=== PATIENT | male | born 1980 | race African-American/Black ===

== ENCOUNTER 2022-09-17 08:56 | Inpatient (IN) | payer MEDICAID, OTHER ==
[~2022-09-17] VITALS: Ht 182.9 cm; Wt 93.9 kg
[2022-09-17 09:58] LABS: BASOPHILS % 0.6 % (0.0-2.0); EOSINOPHILS % 1.1 % (0.0-5.0); HEMATOCRIT. 42.2 % (42.0-52.0); LYMPHOCYTES % 24.4 % (20.0-50.0); MEAN CORPUSCULAR HEMOGLOBIN 30.3 pg (28.0-32.0); MEAN CORPUSCULAR VOLUME 91.7 fL (80.0-94.0); MEAN PLATELET VOLUME 9.8 fl (7.4-10.4); MONOCYTES % 7.6 % (2.0-8.0); NEUTROPHILS % 66.3 % (40.0-76.0); PLATELET 136 x1000/uL (130-400); RED CELL DISTRIBUTION WIDTH 14.7 % (11.6-14.6)
[2022-09-17 10:06] LABS: CHLORIDE 108 mEq/L (98-107)
[2022-09-17] MEDS ORDERED: MORPHINE SULFATE 4 MG/ML CPJ (NOT FOR IM USE) IV ONE (10:30)
[2022-09-17] MEDS ORDERED: ASPIRIN 325MG EC TABLET PO ONE (10:30)
[2022-09-17] MEDS: LOSARTAN POTASSIUM 50 MG TABLET PO SCH (12:15)
[2022-09-17] MEDS ORDERED: ONDANSETRON HCL 4MG/2ML INJ IV PRN (12:15)
[2022-09-17] MEDS ORDERED: ACETAMINOPHEN 325MG TABLET PO PRN (12:15)
[2022-09-17] MEDS: PANTOPRAZOLE 40MG DR TABLET PO SCH ×2 (15:15→21:43)
[2022-09-17] MEDS ORDERED: REGADENOSON 0.4 MG/5 ML IV NR (15:30)
[2022-09-17 16:16] VITALS: BP 145/82
[2022-09-17] MEDS ORDERED: ENOXAPARIN 40MG/0.4ML SYR SUBCUT SCH (18:00)
[2022-09-17 18:58] LABS: CLARITY URINE CLEAR (CLEAR); COLOR URINE YELLOW (YELLOW); KETONES URINE NEGATIVE (NEGATIVE); LEUKOCYTE ESTERASE URINE NEGATIVE (NEGATIVE); NITRITE URINE NEGATIVE (NEGATIVE); OCCULT BLOOD URINE NEGATIVE (NEGATIVE); PROTEIN URINE TRACE (NEGATIVE); SPECIFIC GRAVITY URINE 1.028 (1.005-1.030)
[2022-09-17 19:09] LABS: *AMPHETAMINES SCREEN URINE NEGATIVE (NEGATIVE); *BARBITURATES SCREEN URINE NEGATIVE (NEGATIVE); *BENZODIAZEPINES SCREEN URINE NEGATIVE (NEGATIVE); *COCAINE SCREEN URINE NEGATIVE (NEGATIVE); CANNABINOID URINE SCREEN PRESUMTIVE POSITIVE (NEGATIVE); METHADONE URINE SCREEN NEGATIVE (NEGATIVE); OPIATES URINE SCREEN PRESUMTIVE POSITIVE (NEGATIVE); PHENCYCLIDINE URINE SCREEN NEGATIVE (NEGATIVE)
[2022-09-17 20:00] VITALS: BP 139/60
[2022-09-17] MEDS ORDERED: ATORVASTATIN CALCIUM 40MG TABLET PO SCH (21:00)
[2022-09-17] MEDS: CARVEDILOL 3.125 MG TABLET PO SCH (21:43)
[2022-09-18] VITALS: BP 134/64
[2022-09-18 04:00] VITALS: BP 154/77
[2022-09-18 05:30] LABS: BASOPHILS % 0.4 % (0.0-2.0); EOSINOPHILS % 2.2 % (0.0-5.0); HEMATOCRIT. 40.4 % (42.0-52.0); HEMOGLOBIN. 13.6 g/dL (14.0-18.0); LYMPHOCYTES % 39.6 % (20.0-50.0); MEAN CORPUSCULAR HEMOGLOBIN 30.7 pg (28.0-32.0); MEAN CORPUSCULAR VOLUME 91.5 fL (80.0-94.0); MEAN PLATELET VOLUME 10.3 fl (7.4-10.4); MONOCYTES % 6.8 % (2.0-8.0); PLATELET 135 x1000/uL (130-400); RED BLOOD CELL COUNT 4.42 mill/uL (4.7-6.1); RED CELL DISTRIBUTION WIDTH 14.9 % (11.6-14.6)
[2022-09-18 05:41] LABS: CHLORIDE 107 mEq/L (98-107)
[2022-09-18] MEDS: PANTOPRAZOLE 40MG DR TABLET PO SCH (06:17)
[2022-09-18 08:00] VITALS: BP 141/63
[2022-09-18] MEDS: CARVEDILOL 3.125 MG TABLET PO SCH (08:22)
[2022-09-18] MEDS: LOSARTAN POTASSIUM 50 MG TABLET PO SCH (08:22)
[2022-09-18] MEDS ORDERED: ASPIRIN 81MG TABLET PO SCH (09:00)
[2022-09-18] MEDS ORDERED: REGADENOSON 0.4 MG/5 ML IV ONE (10:24)
[2022-09-18 12:00] VITALS: BP 133/74
[2022-09-18] MEDS ORDERED: LOSA50TA3 PO ×3 (15:22→16:13)
[2022-09-18] MEDS ORDERED: LIP40 PO ×3 (15:22→16:13)
[2022-09-18 15:28] VITALS: BP 133/70
[2022-09-18 16:00] VITALS: BP 135/80
== END 2022-09-18 17:15 | disposition home or self-care (01) | DRG 243 ==
LOC: ER 08:56 → 8WST 11:38 → EDBEDREQTM 11:41 → EDBEDREQ 11:41
PROVIDERS: ADMIT Internal Medicine; ATTEND Internal Medicine
DX: K21.9 Gastro-esophageal reflux disease without esophagitis (principal); E78.5 Hyperlipidemia, unspecified; M94.0 Chondrocostal junction syndrome [Tietze]; F17.210 Nicotine dependence, cigarettes, uncomplicated; I10 Essential (primary) hypertension; Z82.49 Family history of ischemic heart disease and other diseases of the circulatory system
CPT/HCPCS: 36415; 71045; 78452; 80048; 80053; 80061; 80305; 81003; 83880; 84484; 85025; 93005; 93017; 93306; 99285; 99406; A9500; J1650; J2270; J2785

== ENCOUNTER 2025-07-21 13:12 | Emergency (ER) | payer MEDICAID ==
[~2025-07-21] VITALS: Ht 190.5 cm; Wt 100.0 kg
[~2025-07-21 13:12] MED LIST: LIP40 PO; LOSA-413 PO
[2025-07-21 13:14] VITALS: TEMP 98.1; O2SAT 97
[2025-07-21] MEDS: HALOPERIDOL LACTATE 5MG/ML VIAL IM ONE (13:48)
[2025-07-21] MEDS: SODIUM CHLORIDE 0.9% 1,000 ML IV ONE (13:48)
[2025-07-21 13:51] VITALS: TEMP 36.7
[2025-07-21 14:13] LABS: BASOPHILS % 0.3 % (0.0-2.0); EOSINOPHILS % 0.3 % (0.0-5.0); HEMATOCRIT. 40.2 % (42.0-52.0); HEMOGLOBIN. 12.9 g/dL (14.0-18.0); LYMPHOCYTES % 7.6 % (20.0-50.0); MEAN PLATELET VOLUME 9.7 fl (7.4-10.4); MONOCYTES % 5.5 % (2.0-8.0); NEUTROPHILS % 86.3 % (40.0-76.0); PLATELET 163 x1000/uL (130-400); RED BLOOD CELL COUNT 4.36 mill/uL (4.7-6.1); RED CELL DISTRIBUTION WIDTH 14.4 % (11.6-14.6)
[2025-07-21 14:15] LABS: INR 1.1
[2025-07-21 14:32] LABS: CREATININE 1.1 mg/dL (0.6-1.3)
[2025-07-21 14:33] LABS: UREA NITROGEN BLOOD 14 mg/dL (9-23)
[2025-07-21 14:34] LABS: ASPARTATE AMINOTRANSFERASE 422 IU/L (<34); TROPONIN I HIGH SENSITIVITY 5 ng/L (3.0-53)
[2025-07-21 14:35] LABS: BILIRUBIN DIRECT 0.2 mg/dL (<=3.0); BILIRUBIN TOTAL 0.6 mg/dL (0.1-1.0); PROTEIN TOTAL 6.7 g/dL (6.0-8.3)
[2025-07-21 18:42] VITALS: BP 124/78; PULSE 60; RESP 14; O2SAT 99
[2025-07-21 19:22] LABS: TROPONIN I HIGH SENSITIVITY 6 ng/L (3.0-53)
[2025-07-21] MEDS ORDERED: FAMO-135 MT (19:25)
[2025-07-21] MEDS ORDERED: MAG-55 MT (19:25)
[2025-07-21] MEDS ORDERED: IOHEXOL-350 100 ML BOTTLE ONE (23:11)
== END 2025-07-21 20:16 | disposition home or self-care (01) ==
LOC: ER 13:12
DX: K52.9 Noninfective gastroenteritis and colitis, unspecified (principal); R11.16 Cannabis hyperemesis syndrome; F17.200 Nicotine dependence, unspecified, uncomplicated; R06.02 Shortness of breath; I10 Essential (primary) hypertension; Z79.899 Other long term (current) drug therapy; Z86.73 Personal history of transient ischemic attack (TIA), and cerebral infarction without residual deficits
CPT/HCPCS: 80076; 80048; 83880; 83735; 85025; 85379; 85610; 85730; 84484; 36415; 74174; 71045; 71275; 93005; 96360; 96372; 99285; Q9967; J1630; J7030; Z7610 ×4